=== PATIENT | male | born 1970 | race Caucasian/White ===

== ENCOUNTER 2020-01-03 17:40 | Emergency (ER) | payer OTHER ==
[~2020-01-03 17:40] MED LIST: CALCIUM CHLORIDE 100 MG/ML 10 ML SYRINGE ONE; EPINEPHrine 10 ML SYRINGE (0.1 MG/ML) ONE; SODIUM BICARB 8.4% 50 ML SYR (1 MEQ/ML) ONE
[2020-01-03] MEDS ORDERED: CALCIUM CHLORIDE 100 MG/ML 10 ML SYRINGE IVP STA (17:45)
--- NOTE | 2020-01-03 18:11 | ED ---
General Adult HPI - General Chief complaint: Cardiac Arrest/CPR Stated complaint: cardiac arrest Time Seen by Provider: 01/03/20 18:05 Source: EMS Mode of arrival: EMS Limitations: altered mental status - History of Present Illness Initial comments: Dictation was produced using [employer] dictation software. please excuse any grammatical, word or spelling errors. This patient was cared for during a federal and state declared state of emergency secondary to Covid 19 Chief Complaint: 49-year-old male brought in by EMS for cardiac arrest History of Present Illness: 49-year-old male he allegedly was found down at approximately 440. According to EMS patient was down for approximately one to 2 minutes when CPR was started by family members. EMS was called. Patient was pulseless upon initial arrival. He did appear to have ventricular fibrillation. EMS completed approximately 8 cycles of CPR. He he had sporadic episodes of return of spontaneous circulation however would continually lose pulses. Unable to obtain secondary to mental status PHYSICAL EXAM: General Impression: Obtunded, fixed dilated pupils, cyanotic from the mid thorax cephalad HEENT: Normocephalic atraumatic Cardiovascular: Pulseless Chest: Bilateral breath sounds with bagging Abdomen: abdomen soft Musculoskeletal: Pulses to the extremities, mottled, no peripheral edema Neurological: Unresponsive Skin: Mottled skin ED course: 49-year-old male presents after cardiac arrest. EMS performed multiple cycles of cardiac pulmonary resuscitation with continuall loss of pulses. Patient arrived to us and trauma bay 2 at approximately 5:40 PM. He really received approximately one hour of cardiac pulmonary resuscitation. EMS reports that patient had return of spontaneous circulation as they pulled into a parking lot. By the time he arrived to us in the trauma bay he was found to be pulseless. CPR was continued. CPR was performed for another 20 minutes. cafeteria monitor showed episodes of also some electrical activity. Plan care bedside ultrasound was performed showing no pericardial tamponade. At one point during the CPR patient did have palpable pulses. However after 1-2 minutes pulses were lost again. Patient had some runs of fine ventricular fibrillation. Patient was shocked on 2 occasions with no return of spontaneous circulation. [id number] bedside ultrasound was performed again showing no life sustainable cardiac motion. At 6 PM time of was announced. Case is discussed with Dr. Madsen who is listed primary care physician. She does not feel comfortable signing patient's certificate. More information was discussed with ex-. She is listed as on his EMR however they were for approximately 2 years. She reports that she was out hunting when she received a call from the patient saying that he thinks he was having a heart attack. Patient is a 68-year-old who he was with at the time. The 6 and 8-year-old ran to the neighbor's house and got neighbors to help. Patient's ex- gave us patient's brothers contact information. Allegedly Eben Holley is on his way from [place]. At 7:20 PM, patient's brother Eben arrived to the emergency department. According to Eben, patient has history of myocardial infarction with multiple stents. Allegedly they have strong family history of cardiac disease. Eben reports that patient continued to smoke despite having recent heart attack. Furthermore, he did not follow-up with his regular doctors or his complex case manager. He was notified of patient's condition. According to Eben there is one older brother and their mother who is approximately 80 years old with onset of dementia. Eldest brother currently resides in [place]. - Related Data Home Medications Medication Instructions Recorded Confirmed Aspirin 81 mg PO DAILY 09/15/13 09/15/13 Previous Rx's Medication Instructions Recorded Atorvastatin Calcium [Lipitor] 20 mg PO DAILY #30 tab 09/16/13 Allergies Allergy/AdvReac Type Severity Reaction Status Date / Time Penicillins Allergy Unknown Verified 09/15/13 09:12 Review of Systems ROS Statement: Those systems with pertinent positive or pertinent negative responses have been documented in the HPI. ROS Other: All systems not noted in ROS Statement are negative. Past Medical History Past Medical History: Hyperlipidemia, Myocardial Infarction ([place]), Syncope Additional Past Medical History / Comment(s): hypercholesterol Last Myocardial Infarction Date:: 2011 History of Any Multi-Drug Resistant Organisms: None Reported Past Surgical History: Heart Catheterization With Stent Additional Past Surgical History / Comment(s): circumcision Past Anesthesia/Blood Transfusion Reactions: No Reported Reaction Date of Last Stent Placement:: 2011 Past Psychological History: No Psychological Hx Reported Past Alcohol Use History: Occasional Past Drug Use History: Marijuana - Past Family History Father Brother(s) Family Medical History: Coronary Artery Disease (CAD), Myocardial Infarction ([place] I) General Exam Limitations: altered mental status Disposition Clinical Impression: Cardiac arrest Disposition: Referrals: Jessica Madsen MD [Primary Care Provider] - 1-2 days Time of Disposition: 19:29 Preliminary Cause of : cardiac arrest
== END 2020-01-03 18:05 | disposition expired ==
LOC: EC 17:40
DX: I46.9 Cardiac arrest, cause unspecified (principal); I49.01 Ventricular fibrillation; I25.2 Old myocardial infarction; Z79.82 Long term (current) use of aspirin; Z88.0 Allergy status to penicillin; Z95.5 Presence of coronary angioplasty implant and graft; Z82.49 Family history of ischemic heart disease and other diseases of the circulatory system
CPT/HCPCS: 92950; 96374; 99285